=== PATIENT | female | born 1955 | race Caucasian/White ===

== ENCOUNTER 2020-03-17 06:05 | Day surgery (SDC) | payer MEDICARE ==
[2020-03-17] VITALS (9 sets, daily range): BP systolic 133–160; BP diastolic 70–97; PULSE 67–83; TEMP 98.6
[~2020-03-17] VITALS: Ht 160 cm; Wt 63.3 kg
[2020-03-17] MEDS ORDERED: NORCO 325 MG-51 TAB (06:46)
[2020-03-17] MEDS ORDERED: PRILOTC PO (06:49)
--- NOTE | 2020-03-17 07:30 | NUR ---
PATIENT TRANSPORTED PER [facility] CART TO BAY 3 ACCOMPANIED BY ENDO NURSE. PATIENT AMBULATED FROM CART TO CHAIR WITH 1 ASSIST. GAIT. PATIENT ALERT AND TALKING WITH STAFF. MONITORS APPLIED. VSS. PHONE CALL MADE TO DAUGHTER WITH UPDATE ON PATIENT STATUS. PATIENT TALKS TO DAUGHTER ON PHONE. 0740 PATIENT GIVEN COFFEE AND JELLO. PATIENT DENIES NAUSEA AND DISCOMFORT.
--- NOTE | 2020-03-17 07:55 | NUR ---
VSS. PATIENT DRINKING COFFEE AND EATS JELLO WITHOUT PROBLEMS. PATIENT DENIES NAUSEA AND DISCOMFORT.
--- NOTE | 2020-03-17 08:18 | NUR ---
VSS. PATIENT WATCHING TV. PATIENT DENIES C/O'S.
--- NOTE | 2020-03-17 08:35 | NUR ---
VSS. PATIENT AMBULATED TO BATHROOM AND VOIDS WITHOUT PROBLEMS. DENIES C/O'S.
--- NOTE | 2020-03-17 09:05 | NUR ---
VSS. PATIENT WATCHING TV. PATIENT DENIES NAUSEA AND DISCOMFORT.
--- NOTE | 2020-03-17 09:25 | NUR ---
0939 VSS. DISCHARGE INSTRUCTIONS GIVEN VERBAL AND WRITTEN. QUESTIONS ANSWERED AND PATIENT VOICED UNDERSTANDING. IV SITE DC'D CATHETER TIP INTACT. PRESSURE AND BANDAID APPLIED. [address] [facility].
== END 2020-03-17 09:35 | disposition home or self-care (01) ==
LOC: SDCO 06:05
DX: K80.50 Calculus of bile duct without cholangitis or cholecystitis without obstruction (principal); Z90.49 Acquired absence of other specified parts of digestive tract; F17.210 Nicotine dependence, cigarettes, uncomplicated; K21.9 Gastro-esophageal reflux disease without esophagitis; Z88.2 Allergy status to sulfonamides
CPT/HCPCS: C1769; J2405; J2704; J3010; J7120; Q9967